=== PATIENT | male | born 1930 | race Caucasian/White ===

== ENCOUNTER → 2019-11-14 | Day surgery (SDC) | payer MEDICARE ==
[2019-11-09 12:35] LABS: BASOPHILS # (AUTO) 0.1 (0.0-0.1); BASOPHILS % 0.8 % (0.0-1.0); EOSINOPHILS # (AUTO) 0.2 (0.0-0.4); EOSINOPHILS % 2.8 % (0.0-6.0); HEMATOCRIT 41.8 % (38.2-49.6); HEMOGLOBIN 13.6 g/dL (14.0-18.0); LYMPHOCYTES # (AUTO) 1.3 (1.0-3.2); LYMPHOCYTES % 15.2 % (18.0-39.1); MEAN CORPUSCULAR HEMOGLOBIN 31.9 pg (28-32); MEAN CORPUSCULAR HGB CONC 32.5 g/dL (31-35); MEAN CORPUSCULAR VOLUME 98.1 fL (81-99); MONOCYTES % 12.6 % (4.4-11.3); NEUTROPHILS # (AUTO) 5.6 (2.1-6.9); NEUTROPHILS % 68.1 % (38.7-80.0); PLATELET COUNT 313 x10e3/uL (140-360); RED BLOOD COUNT 4.26 x10e6/uL (4.3-5.7); RED CELL DISTRIBUTION WIDTH 14.6 % (11.7-14.4)
--- NOTE | 2019-11-09 13:36 | Diagnostic Imaging Report ---
X-ray chest PA and lateral History: Preop Comparison: None Findings: Left subclavian route dual-chamber pacemaker. Cardiomegaly. Atherosclerotic aorta. An additional opacity overlying cardiac shadow suggests the possibility of a hiatal hernia. No pleural effusion. No pneumothorax. Relatively flat and low hemidiaphragms suggestive of emphysema. Lung ponce otherwise unremarkable for a focal disease. Visualized skeletal structures show degenerative disc disease. Upper abdomen unremarkable. Impression: Cardiomegaly. No acute pulmonary disease. Possible COPD. An additional opacity likely in the middle mediastinum could represent a hiatal hernia. A chest CT may be considered for further evaluation. Signed by: Luis Carlos Laughlin MD on 11/09/2019 1:33 PM
[~2019-11-14] MED LIST: ALBUTEROL0.63 MG/3 INH; ASPIR 8181 MG PO; CEFTRIAXONE SOD 1 GM/NS 50 ML 50 ML IV ONE; DEXAMETHASONE SOD PHOS INJ 4 MG/ML VIAL ONE; ELIQUIS2.5 MG PO; EPHEDRINE SULFATE INJ 50 MG/ML VIAL ONE; FENTANYL CITRATE/PF 100MCG/2 ML INJ ONE; FLOMAX0.4 MG PO; FUROSEMIDE40 MG PO; IOPAMIDOL 300MG/ML 50ML INFUS..BTL IV ONE; LIDOCAINE HCL 2% LOCAL INJ 5 ML SDV VIAL INJ ONE; METOPROLOL TART25 MG PO; MIRTAZAPINE7.5 MG PO; ONDANSETRON HCL INJ 2MG/ML 2ML 2 MG/ML VIAL ONE; PANTOPRAZOLE SO20 MG PO; PROPOFOL IV EMULSION 10 MG/ML 20 ML VIAL ONE; SEVOFLURANE INHAL SOLN 250 ML PEN BTL ONE; VITAMIN B-121000 MCG PO; VITAMIN D PO
[2019-11-14 06:11] LABS: ANION GAP 15.9 mmol/L (8-16); CALCIUM 9.7 mg/dL (8.4-10.2); CREATININE, SERUM 3.39 mg/dL (0.72-1.25); POTASSIUM 3.9 mmol/L (3.5-5.1)
[2019-11-14 08:45] VITALS: BP 128/70
--- NOTE | 2019-11-14 09:52 | Operative Report ---
DATE OF PROCEDURE: 11/14/2019 SURGEON: David Godwin MD PREOPERATIVE DIAGNOSES: 1. Encrusted right ureteral stent. 2. Right ureteral calculus. 3. Right ureteral stent. 4. Right hydronephrosis. 5. Renal failure. POSTOPERATIVE DIAGNOSES: 1. Encrusted right ureteral stent. 2. Right ureteral calculus. 3. Right ureteral stent. 4. Right hydronephrosis. 5. Renal failure. PROCEDURES: 1. Staged shock wave lithotripsy, right side (entirely separate procedure for diagnosis of right ureteral stent/right renal calculi). 2. Cystourethroscopy with complicated removal of a right indwelling ureteral stent (entirely separate procedure for the diagnosis of an encrusted right ureteral stent). 3. Right-sided ureteroscopy with laser lithotripsy (entirely separate procedure for the diagnosis of right ureteral calculus). 4. Cystourethroscopy with insertion of a right indwelling stent (entirely separate procedure for diagnosis of right hydronephrosis). 5. Supervision of fluoroscopy. 6. Interpretation of retrograde pyelography. ANESTHESIA: General. ESTIMATED BLOOD LOSS: Minimal. COMPLICATIONS: None. INDICATIONS FOR PROCEDURE: Mr. Owens is a very pleasant 89-year-old male patient, who had a stent placed by Dr. Velazquez in out of network position. The patient with the stent in longer than recommended time, secondary to referral issues, now presents for definitive management. His [id number] and I had a long discussion about alternatives, risks, and benefits of doing nothing, shock wave lithotripsy, ureteroscopy, percutaneous surgery or open surgery, the portion of the options, alternatives, risks, and benefits. He elected to proceed. PROCEDURE IN DETAIL: After informed consent was obtained, the patient was taken to the operative suite, placed supine on the operating table, underwent general anesthesia by the Anesthesia Service, placed in dorsal position, sterilely prepped and draped for cystoscopy. A 21-Lithuanian cystoscope was inserted per urethra and normal urethra was noted. There was trilobar prostatic hypertrophy. The stent was seen extruding from the right orifice. It was encrusted. Attempts were made to grasp a proximal coil. The was used to deliver shocks until the stent could be removed. When the stent was drawn approximately correction, a guidewire was inserted alongside of the stent with moderate difficulty. Utilizing glidewire, was able access to proximal collecting system. Stent was removed intact. 5-Lithuanian open-ended catheter was utilized to perform a retrograde pyelogram in a pull down fashion and revealed a 5 x 5 mm distal ureteral calculus. The guidewire was reinserted. Ureteroscope was advanced to the level. There was a very tortuous right ureter. There was a large amount of edema, secondary to the incrustation. Stone was lasered until visualization became impossible at this time with inability to see a 7 x 26 ureteral stent was deployed with coil in renal pelvis, coil in the bladder. The patient's bladder was drained. He was awakened from anesthesia and transported to the recovery room in excellent condition. Supervision of fluoroscopy and interpretation of retrograde pyelography: I was present for the entire procedure and supervised fluoroscopy. There was no radiologist present. Attention was turned toward the right ureteral orifice, which was catheterized with 5-Lithuanian catheter. Retrograde pyelograms revealed 5 x 5 distal ureteral calculus, severe tortuosity of the ureter, proximal hydronephrosis, and removal of the stent. MD ANA ROSA Parker/LEATHA /[id number]
== END | disposition home or self-care (01) ==
LOC: OR 05:14
PROVIDERS: ATTEND Urology
DX: N20.1 Calculus of ureter (principal); N13.30 Unspecified hydronephrosis; Z46.6 Encounter for fitting and adjustment of urinary device; N19 Unspecified kidney failure; N40.1 Benign prostatic hyperplasia with lower urinary tract symptoms; R33.8 Other retention of urine; N13.8 Other obstructive and reflux uropathy; I82.409 Acute embolism and thrombosis of unspecified deep veins of unspecified lower extremity; I48.91 Unspecified atrial fibrillation; I11.0 Hypertensive heart disease with heart failure; I50.9 Heart failure, unspecified; I20.9 Angina pectoris, unspecified; I25.2 Old myocardial infarction; J45.909 Unspecified asthma, uncomplicated; J43.9 Emphysema, unspecified; K21.9 Gastro-esophageal reflux disease without esophagitis; K44.9 Diaphragmatic hernia without obstruction or gangrene; F17.290 Nicotine dependence, other tobacco product, uncomplicated; Z79.82 Long term (current) use of aspirin; Z79.02 Long term (current) use of antithrombotics/antiplatelets; Z95.0 Presence of cardiac pacemaker
CPT/HCPCS: 36415 ×2; 50590; 52356; 71046; 80048; 85025; 87635; 93005; J0696; J1100; J2001; J2405; J2704; J3010; Q9967

== ENCOUNTER → 2019-12-05 | Day surgery (SDC) | payer MEDICARE, OTHER ==
[2019-11-30 14:16] LABS: ANION GAP 15.2 mmol/L (8-16); CALCIUM 9.7 mg/dL (8.4-10.2); CREATININE, SERUM 2.74 mg/dL (0.72-1.25)
[2019-11-30 14:22] LABS: POTASSIUM 5.2 mmol/L (3.5-5.1)
--- NOTE | 2019-11-30 14:41 | Diagnostic Imaging Report ---
Exam: KUB - 2 views Indication: Preoperative Comparison: None Findings: Right internal nephroureteral stent in place. Tiny 2 to 3 mm calcific densities overlying the medial right renal silhouette may represent small renal calculi. 3 mm calcific density overlying the upper pole of the left kidney may represent renal calculus versus intraluminal bowel content. Phleboliths in the pelvis. Nonobstructive bowel gas pattern. No free air. No acute osseous injury. Impression: Tiny 2 to 3 mm calcific densities overlying the medial right renal silhouette and upper pole of left kidney may represent tiny renal calculi. Right internal nephroureteral stent in place. Signed by: Liliam Hernandez MD on 11/30/2019 2:38 PM
[~2019-12-05] MED LIST changes: +CEFUROXIME250 MG PO; -EPHEDRINE SULFATE INJ 50 MG/ML VIAL ONE; +ETOMIDATE 2 MG/ML 10 ML INJ IV ONE; -FENTANYL CITRATE/PF 100MCG/2 ML INJ ONE; +LABETALOL HCL 5 MG/ML 20ML VIAL ONE; +LIDOCAINE HCL 2% JELLY 5 ML TUBE ONE; -PROPOFOL IV EMULSION 10 MG/ML 20 ML VIAL ONE
[2019-12-05 09:05] VITALS: BP 127/69
--- NOTE | 2019-12-05 14:30 | Operative Report ---
DATE OF PROCEDURE: 12/05/2019 SURGEON: David Godwin MD PREOPERATIVE DIAGNOSES: 1. Indwelling right ureteral stent. 2. Right ureteral calculus. POSTOPERATIVE DIAGNOSES: 1. Indwelling right ureteral stent. 2. Right ureteral calculus. 3. Urethral stricture disease. PROCEDURES: 1. Cystourethroscopy with staged dilation of urethra (entirely separate procedure for urethral stricture disease). 2. Cystourethroscopy with removal of right ureteral stent in a staged fashion (entirely separate staged procedure for removal of a right indwelling ureteral stent). 3. Staged right-sided shock wave lithotripsy (entirely separate procedure for the diagnosis of right ureteral calculi). 4. Supervision of fluoroscopy. 5. Interpretation of retrograde pyelography. ANESTHESIA: General. ESTIMATED BLOOD LOSS: Minimal. COMPLICATIONS: None. INDICATIONS FOR PROCEDURE: Mr. Owens is an 89-year-old male patient with a previously encrusted stent and ureteral calculi, now presenting for shock wave lithotripsy and cleanup. He voiced understanding of the options, alternatives, risks, and benefits and elected to proceed. PROCEDURE IN DETAIL: After informed consent was obtained, the patient was taken to operative suite, placed supine on the operative table, underwent general anesthesia by the Anesthesia Service, was placed in dorsal lithotomy position, and sterilely prepped and draped for cystoscopy. A 22.5-Estonian cystoscope was attempted to be inserted per urethra and was unable to insert. Urethra was calibrated 16-Estonian dilated to 24-Estonian. Cystoscope was then introduced. There was trilobar prostatic hypertrophy. The bladder was evacuated of clots from the stent. The stent was grasped and removed. Attempt was made to insert a wire and this failed. Cystoscope was reintroduced. A guidewire was inserted, seen to coil at the level of renal pelvis. A 5-Estonian open-ended catheter was advanced. This manipulated the stone from the distal proximal ureter into the UPJ area. Retrograde pyelogram was performed showing clear outlines of the stone at the level of UPJ. Lithotripsy head was then brought into view. Stone was approximately 5 x 6 mm. After 1000 shocks, the stone was no longer visualized with retrograde pyelogram. At this time, collecting system is draining. The bladder was drained. The patient was awakened from anesthesia and transported to the recovery room in excellent condition. Supervision of fluoroscopy and interpretation of retrograde pyelography: I was present for the entire procedure and supervised fluoroscopy. There was no radiologist present. Attention was turned to right ureter, which was catheterized with a 5-Estonian open-ended catheter. Retrograde pyelogram was performed revealing a 5 x 6 mm calculus at the right UPJ, mild proximal hydronephrosis, interim removal of stent. MD ANA ROSA Parker/MODL /[id number]
== END | disposition home or self-care (01) ==
LOC: OR 05:25
PROVIDERS: ATTEND Urology
DX: N13.39 Other hydronephrosis (principal); Z96.0 Presence of urogenital implants; R33.8 Other retention of urine; N40.1 Benign prostatic hyperplasia with lower urinary tract symptoms; I10 Essential (primary) hypertension; N20.1 Calculus of ureter; Z87.891 Personal history of nicotine dependence; N35.819 Other urethral stricture, male, unspecified site; I48.91 Unspecified atrial fibrillation; J44.9 Chronic obstructive pulmonary disease, unspecified; Z95.0 Presence of cardiac pacemaker; Z86.718 Personal history of other venous thrombosis and embolism; Z01.812 Encounter for preprocedural laboratory examination; Z11.59 Encounter for screening for other viral diseases
CPT/HCPCS: 36415 ×2; 50590; 52281; 74018; 80048; 84132; 87635; C1758; C1769; J0696; J1100; J2001 ×2; J2405; J3490; Q9967